=== PATIENT | female | born 1955 | race African-American/Black ===

== ENCOUNTER → 2020-09-10 | Outpatient (CLI) | payer MEDICARE, OTHER ==
--- NOTE | 2020-09-10 10:36 | RADIOLOGY REPORT (SQ) ---
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 TECHNIQUE: Axial 3-D snrt-ic-iofpkl acquisition imaging performed through the brain in the area of t he [place]. Images reformatted using 3-D MIPS. LIMITATIONS: Signal void. FINDINGS: SOURCE IMAGES: No unexpected findings on source images. No large masses. 3-D MIP: Signal void in the adjacent to distal right M 1 segment. There is approximately 2 mm focus of abnormal signal which could represent a small saccular aneurysm series 3, image 84. There are adj acent collateral vessels anterior temporal lobe. OTHER: No other significant finding. 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 TECHNICAL DOCUMENTATION: JOB ID: [id number] 2010 [employer]- All Rights Reserved Reading location - IP/workstation name: [email or web address]
== END ==
LOC: RAD 08:43
PROVIDERS: ATTEND Neurological Surgery
DX: I67.1 Cerebral aneurysm, nonruptured (principal)
CPT/HCPCS: 70544